=== PATIENT | female | born 1965 | race African-American/Black ===

== ENCOUNTER 2018-12-05 10:23 | Day surgery (SDC) | payer BC ==
[2018-12-04 15:41] VITALS: BMI 24.3
[2018-12-05] MEDS ORDERED: ROPIVACAINE HCL 0.5% 30ML VIAL ONE (13:13)
[2018-12-05] MEDS ORDERED: MIDAZOLAM HCL 2 MG/2 ML SINGLE DOSE VIAL ONE ×2 (13:13→14:29)
[2018-12-05] MEDS ORDERED: PROPOFOL 20 ML ONE (14:29)
[2018-12-05] MEDS ORDERED: ceFAZolin SODIUM 1 GM VIAL ONE (14:39)
[2018-12-05] MEDS ORDERED: ACETAMINOPHEN 325 MG TABLET (FP) PO PRN (15:06)
[2018-12-05] MEDS ORDERED: oxyCODONE HCL 5 MG TABLET PO PRN ×2 (15:06)
[2018-12-05] MEDS ORDERED: ONDANSETRON 4 MG/2 ML VIAL IVPUSH PRN (15:06)
[2018-12-05] MEDS ORDERED: LACTATED RINGERS SOLUTION 1,000 ML IV SCH (15:15)
[2018-12-05 17:40] VITALS: BP 134/82; PULSE 61; TEMP 98
--- NOTE | 2018-12-09 14:15 | OP ---
DATE OF OPERATION: 12/05/2018 PREOPERATIVE DIAGNOSIS: Right displaced distal radius fracture. POSTOPERATIVE DIAGNOSIS: Right displaced distal radius fracture. OPERATIVE PROCEDURE: 1. Open reduction/internal fixation of right comminuted, displaced distal radius fracture with fixation of 3 or more fragments. 2. Right brachioradialis tenotomy. SURGEON: Femi Blankenship MD [employer] CHIEF CLERK: MEGAN Humphries ANESTHESIA: Regional. COMPLICATIONS: None. ESTIMATED BLOOD LOSS: Minimal. INDICATION FOR PROCEDURE: The patient is a 53-year-old female with the above finding, indicated for operative treatment. Risks, benefits, alternatives were discussed with the patient at length. Proper informed consent was obtained. PROCEDURE: After proper identification of patient and correct operative site, patient brought to the operating room and placed supine on the table with all bony prominences well-padded. Right upper extremity was prepped and draped in the usual sterile fashion. A well-padded tourniquet was placed over the sterile prep, Esmarch bandage to exsanguinate the right upper extremity, tourniquet was inflated to 250 mmHg. A longitudinal incision made over the flexor carpi radialis tendon. The incision was taken sharply through the skin with blunt and sharp dissection of the subcutaneous tissues. Flexor carpi radialis tendon, along with the contents of the carpal canal were bluntly and gently retracted in an ulnarward direction for the remainder of the procedure. Pronator quadratus was found to be partially ruptured distally and the remainder of it was divided and elevated off the distal radius. The comminuted, displaced fracture was noted. Pole of the brachioradialis tendon made reduction not possible; therefore, a brachioradialis tenotomy was performed subperiosteally, releasing the tendon and the pole of it. This allowed me to reduce the fracture in satisfactory alignment and this was then held with Acumed Acu-Loc plate with distal locking pegs and screws and proximal nonlocking bicortical screws. This provided secure, stable fixation of the fracture and with satisfactory alignment confirmed radiographically in multiple planes. Distal interval were stressed and found to be stable. Wound was repaired in layers using 4-0 Vicryl and 4-0 Monocryl sutures. Steri-Strips and sterile dressings were applied. Splint was placed. Patient was reversed from anesthesia and brought to the recovery room in stable condition. She tolerated the procedure well. Olga Marin, the assistant technician, was interval throughout the procedure. The procedure could not have been performed without a skilled operative assistant technician. FEMI BLANKENSHIP M.D. [id number]
== END 2018-12-05 17:20 | disposition home or self-care (01) ==
LOC: FASU 10:23
PROVIDERS: ATTEND Orthopaedic Surgery Hand Surgery
PROC: 0LN50ZZ Release Right Lower Arm and Wrist Tendon, Open Approach (ICD-10-PCS; 2018-12-05)
PROC: 0PSH04Z Reposition Right Radius with Internal Fixation Device, Open Approach (ICD-10-PCS; principal; 2018-12-05 14:49)
DX: S52.531A Colles' fracture of right radius, initial encounter for closed fracture (principal); X58.XXXA Exposure to other specified factors, initial encounter; Y93.9 Activity, unspecified; Y92.9 Unspecified place or not applicable
CPT/HCPCS: 25290; 25609; C1713; 76000-TC-FY; 94760

== ENCOUNTER 2019-01-25 16:23 | Emergency (ER) | payer BC ==
[2019-01-25 16:52] VITALS: BP 147/92; PULSE 68; TEMP 98; BMI 24.3
[2019-01-25] MEDS ORDERED: SULFAMETHOXAZOLE/TRIMETHOPRIM 800MG/160MG D.S. TABLET PO ONE (18:04)
--- NOTE | 2019-01-25 18:08 | PDOC ---
Documentation entered by Emilia Wiggins SCRIBE, acting as scribe for Stephanie Moreno MD. Stephanie Moreno MD: This documentation has been prepared by the [employer] workman Xhesika, SCRIBE, under my direction and personally reviewed by me in its entirety. I confirm that the documentation accurately reflects all work, treatment, procedures, and medical decision making performed by me. History of Present Illness - General Chief Complaint: Revisit,Wound Recheck Stated Complaint: WRIST SURGERY WOUND CHECK History Source: Patient Exam Limitations: No Limitations - History of Present Illness Initial Comments: 01/25/19 17:11 The patient is a 53 year old female with no significant PMH, who presents to the emergency department for R wrist wound swelling and soreness x 3 days. The patient states she endorsed an R wrist fracture, had is surgically repaired by Dr. Dia 12/05/18 and has been going to physical therapy 2 times a week. Patient states she has been having difficulty with R wrist flexion and pronation. Patient notes she has her brace on last night. Patient notes she assists her mother in law with house chores, however, she is L hand dominant and denies over using her R hand. The patient denies chest pain, shortness of breath, headache and dizziness. Denies fever, chills, cough, nausea, vomiting, diarrhea and constipation. Allergies: NKDA Past surgical history: Left Oophorectomy Social history: Denies alcohol or tobacco use. Past History - Past Medical History Allergies/Adverse Reactions: Allergies Allergy/AdvReac Type Severity Reaction Status Date / Time No Known Allergies Allergy Verified 01/25/19 16:30 Home Medications: Ambulatory Orders Rosuvastatin Calcium [Crestor] 10 mg PO DAILY 12/04/18 Ibuprofen [Motrin -] 400 mg PO TID #21 tablet 01/25/19 Sulfamethoxazole/Trimethoprim [Bactrim Ds Tablet] 1 each PO BID #14 tablet 01/25 Anemia: No Asthma: No Cancer: No Cardiac Disorders: No CVA: No COPD: No CHF: No Dementia: No Diabetes: No GI Disorders: No Disorders: No HTN: No Hypercholesterolemia: Yes Liver Disease: No Seizures: No Thyroid Disease: No - Surgical History Abdominal Surgery: Yes (Left Oopherectomy) Appendectomy: No Cardiac Surgery: No Cholecystectomy: No Lung Surgery: No Neurologic Surgery: No Orthopedic Surgery: No - Psycho Social/Smoking Cessation Hx Smoking History: Never smoked Hx Alcohol Use: No Drug/Substance Use Hx: No Substance Use Type: None Hx Substance Use Treatment: No Review of Systems - Review of Systems Able to Perform ROS?: Yes Comments:: 01/25/19 17:13 GENERAL/CONSTITUTIONAL: No fever or chills. No weakness. HEAD, EYES, EARS, NOSE AND THROAT: No change in vision. No ear pain or discharge. No sore throat. CARDIOVASCULAR: No chest pain or shortness of breath. RESPIRATORY: No cough, wheezing, or hemoptysis. GASTROINTESTINAL: No nausea, vomiting, diarrhea or constipation. GENITOURINARY: No dysuria, frequency, or change in urination. MUSCULOSKELETAL: + R wrist wound swelling. + R wrist wound soreness. No neck or back pain. SKIN: No rash NEUROLOGIC: No headache, vertigo, loss of consciousness, or change in strength/ sensation. ENDOCRINE: No increased thirst. No abnormal weight change. HEMATOLOGIC/LYMPHATIC: No anemia, easy bleeding, or history of blood clots. ALLERGIC/IMMUNOLOGIC: No hives or skin allergy. *Physical Exam - Physical Exam Comments: 01/25/19 17:13 GENERAL: Awake, alert, and fully oriented, in no acute distress LUNGS: Breath sounds equal, clear to auscultation bilaterally. No wheezes, and no crackles HEART: Regular rate and rhythm, normal S1 and S2, no murmurs, rubs or gallops ABDOMEN: Soft, nontender, normoactive bowel sounds. No guarding, no rebound. No masses EXTREMITIES:+ tenderness to palpation of volar aspect at passive and active motion of the R wrist. + mild to moderate swelling. + decreased flexion and pronation of R wrist. Equal supination of b/l wrists. Scar well healed, questionable small point opening. NEUROLOGICAL: Cranial nerves II through XII grossly intact. Normal speech, normal gait SKIN: Warm, Dry, normal turgor, no rashes or lesions noted. Medical Decision Making - Medical Decision Making 01/25/19 17:35 I spoke with MEGAN Underwood at Dr. Dia's office at 5:30pm who agrees with the plan. Will wrap R wrist with curad xeroform petrolatum dressing. Patient will be advised to take anti-inflammatory and will be placed on oral antibiotics. Discharge - Discharge Information Problems reviewed: Yes Clinical Impression/Diagnosis: Wrist pain, right Condition: Good Disposition: HOME - Admission No - Additional Discharge Information Prescription Drug Monitoring Program (I-STOP) results: I-STOP reviewed and no issues identified - Follow up/Referral Referrals: Yoshi Dia MD [Primary Care Provider] - - Patient Discharge Instructions Additional Instructions: rest. call Dr Dia office on Monday to get an appointment for Monday - Post Discharge Activity
[2019-01-25] MEDS ORDERED: SULFAMETHOXAZOLE/TRIMETHOPRIM 800MG/160MG D.S. TABLET ONE (18:11)
== END 2019-01-25 18:24 | disposition home or self-care (01) ==
LOC: FER 16:23
DX: Z48.01 Encounter for change or removal of surgical wound dressing (principal)
CPT/HCPCS: 99281-25